=== PATIENT | male | born 1975 | race Caucasian/White ===

== ENCOUNTER 2016-10-12 10:07 | Emergency (ER) | payer MEDICAID ==
[~2016-10-12] VITALS: Ht 190.5 cm; Wt 136.1 kg
[~2016-10-12 10:07] MED LIST: LEVE500T13 PO
[2016-10-12 10:08] VITALS: BP_SYST 147
[2016-10-12] MEDS ORDERED: PROCHLORPERAZINE EDISYLATE 10 MG/2 ML VIAL IM ONE (10:45)
[2016-10-12] MEDS ORDERED: KETOROLAC TROMETHAMINE 60 MG/2 ML VIAL IM ONE (10:45)
[2016-10-12 10:48] LABS: HEMOGLOBIN 15.7 g/dL (14.0-18.0); RED BLOOD CELL COUNT(AUTO) 5.09 MIL/uL (4.2-6.2); WHITE BLOOD COUNT (AUTO) 6.7 K/uL (4.8-10.8)
[2016-10-12 10:49] LABS: BASOPHILS % (AUTO) 0.6 % (0.0-2.0); EOSINOPHILS # (AUTO) 0.3 K/uL (0.0-0.4); EOSINOPHILS % (AUTO) 4.4 % (0.0-4.0); LYMPHOCYTES # (AUTO) 1.5 K/uL (1.0-5.5); LYMPHOCYTES % (AUTO) 22.4 % (20.5-51.5); MEAN CORPUSCULAR HEMOGLOBIN 31 pg (27-31); MEAN CORPUSCULAR HGB CONC 33 % (32-36); MEAN CORPUSCULAR VOLUME 94 fL (79.0-98.0); MONOCYTES # (AUTO) 0.3 K/uL (0.0-1.0); MONOCYTES % (AUTO) 4.6 % (1.7-9.3); NEUTROPHILS # (AUTO) 4.6 K/uL (1.8-7.7); PLATELET COUNT (AUTO) 161 K/uL (130-430); RED CELL DISTRIBUTION WIDTH 13.6 % (9.0-15.0)
[2016-10-12 10:52] LABS: CALCIUM 8.7 mg/dL (8.4-11.0); CREATININE 1.27 mg/dL (0.55-1.30); POTASSIUM 3.6 mmol/L (3.5-5.1)
[2016-10-12 11:35] VITALS: BP_SYST 119
[2016-10-12] MEDS ORDERED: HYDROcodone/ACETAMIN 5-325 MG TAB (NORCO/ VICODIN) PO ONE (12:00)
== END 2016-10-12 12:11 | disposition left against medical advice (07) ==
LOC: SED 10:07
DX: G40.89 Other seizures (principal); R51 Headache; E11.9 Type 2 diabetes mellitus without complications; Z88.5 Allergy status to narcotic agent; Z53.20 Procedure and treatment not carried out because of patient's decision for unspecified reasons
CPT/HCPCS: 36415; 80048; 82962; 85025; 93005; 96372; 99285; J0780; J1885

== ENCOUNTER 2022-12-14 16:07 | Emergency (ER) | payer MEDICAID ==
[~2022-12-14] VITALS: Ht 182.9 cm; Wt 99.8 kg
[~2022-12-14 16:07] MED LIST changes: -LEVE500T13 PO; +LEVE500T9 PO
[2022-12-14 16:45] VITALS: BP_SYST 136; PULSE 87; RESP 18; TEMP 98.2; O2SAT 98
[2022-12-14] MEDS ORDERED: KETOROLAC TROMETHAMINE 30 MG VIAL IM ONE (18:00)
[2022-12-14] MEDS ORDERED: DICL20GE TP (22:16)
[2022-12-14] MEDS ORDERED: KETOROLAC TROMETHAMINE 30 MG VIAL ONE (22:36)
[2022-12-15] MEDS: MORPHINE 4 MG INJ. 4 MG/ML VIAL IM ONE ×2 (00:02)
[2022-12-15] MEDS ORDERED: HYDROcodone/ACETAMIN 5-325 MG TAB (NORCO/ VICODIN) PO ONE ×2 (00:15→03:30)
[2022-12-15 11:53] VITALS: BP_SYST 135; PULSE 74; RESP 18; TEMP 97.3; O2SAT 98
== END 2022-12-15 09:00 ==
LOC: SED 16:07
DX: S70.01XA Contusion of right hip, initial encounter (principal); S80.01XA Contusion of right knee, initial encounter; E11.9 Type 2 diabetes mellitus without complications; Z88.5 Allergy status to narcotic agent; Z88.8 Allergy status to other drugs, medicaments and biological substances; Z79.899 Other long term (current) drug therapy; W01.0XXA Fall on same level from slipping, tripping and stumbling without subsequent striking against object, initial encounter; Y93.89 Activity, other specified; Y92.89 Other specified places as the place of occurrence of the external cause; Y99.8 Other external cause status
CPT/HCPCS: 99285; 29505; 73030; 73502; 73564; 96372; 72170; J1885